=== PATIENT | female | born 1990 | race African-American/Black ===

== ENCOUNTER 2024-05-07 18:13 | Emergency (ER) | payer OTHER, SELFPAY ==
[2024-05-07 18:22] VITALS: BP 148/97; PULSE 98; RESP 17; TEMP 37.2; O2SAT 98; BMI 42.9
--- NOTE | 2024-05-07 18:51 | PC.NURSE ---
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 Pt landed on her left side and injured her left shoulder, elbow, hip and lower back. states that she is experiencing a 5/10 throbbing pain. Pt a&ox4.
--- NOTE | 2024-05-08 01:05 | ED_ITS ---
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 was assisting very tall very large patient who in her estimation is more than 300 lb and over 6 ft in height, who was leaning over seeing while she was behind him, he suddenly seemed to lose balance and fall backwards into her, she attempted to pushing forward toward the scene can support, however he was too heavy for her to support, and they both fell backwards, patient landing on top of her and she landing on her back. She did not believe that she hit her head. Has no posterior headache. Has no neck pain. Has left shoulder posterior discomfort. Has left lateral hip discomfort. Able to bear weight and ambulate. Related Data Allergies Allergy/AdvReac Type Severity Reaction Status Date / Time No Known Drug Allergies Allergy Verified 05/07/24 18:32 Patient History Social History Smoking Status: Never smoker Smoking Status: Never smoker Exam Narrative Exam Narrative: GENERAL: Well-developed patient, in mild distress. HEAD: Atraumatic. Normocephalic. EYES: Pupils equal round and reactive. Extraocular motions intact. No scleral icterus. No injection or drainage. ENT: Nose without bleeding, purulent drainage. Throat without erythema, tonsillar hypertrophy or exudate. Airway patent. NECK: Trachea midline. Non tender CARDIOVASCULAR: Regular rate and rhythm without murmurs, gallops, or rubs. RESPIRATORY: Clear to auscultation. Breath sounds equal bilaterally. No wheezes, rales, or rhonchi. GASTROINTESTINAL: Abdomen soft, non-tender, nondistended. EXTREMITIES: Left shoulder with no gross deformity, no tenderness or superior trapezius, upper rhomboid, nor along left clavicle, AC joint, anterior or latera l deltoid. Mild tenderness posterior shoulder without gross step-off. Normal range of motion. Mild tenderness left lateral hip, able to bear weight, can flex hip and move left heel toward buttock without difficulties. No limb length discrepancy. She was able to tolerate standing and ambulation without antalgic gait. BACK: Nontender without deformity or crepitance. No flank tenderness. NEURO: AOx3. Motor functions grossly nonfocal. SKIN: No rash or erythema of visible areas Initial Vital Signs Initial Vital Signs: Vital Signs Temperature 98.9 F 05/07/24 18:22 Pulse Rate 98 H 05/07/24 18:22 Respiratory Rate 17 05/07/24 18:22 Blood Pressure 148/97 H 05/07/24 18:22 Pulse Oximetry 98 05/07/24 18:22 Oxygen Delivery Method Room Air 05/07/24 18:22 Course Orders Ordered: Discontinued Medications Acetaminophen (Acetaminophen 325 Mg Tablet) 975 mg PO NOW ONE Stop: 05/08/24 01:01 Last Admin: 05/08/24 01:25 Dose: 975 mg Documented By: AB Vital Signs Vital signs: Vital Signs - 8 hr 05/07/24 18:22 Temperature 98.9 F Pulse Rate 98 H Respiratory Rate 17 Blood Pressure 148/97 H Pulse Oximetry 98 Oxygen Delivery Method Room Air Medical Decision Making MDM Narrative Medical decision making narrative: 33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 on 05/07/2024. She had not believe she hit her head. No neck pain. Mild posterior left shoulder tenderness without step-off, normal range of motion. Mild left lateral hip tenderness without bruising or significant decreased range of motion, able to bear weight and ambulate. Clinically suspect left shoulder strain, left hip contusion. No imaging indica chet for now. Patient happens to be off work for the next week or so. Advised not to lift or pole anything heavy with her left upper extremity for the next couple of days. Recheck with regular provider advised if she feels like she can not do her regular duties by next week scheduled next shift. [place] [employer] [id number]. Discharge Plan Departure Patient Disposition: Home Clinical Impression: Left shoulder strain, Contusion of left hip Activity Restrictions/Additional Instructions: Ms. 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 last night you were assisting a patient very tall very large, who fell backwards on top of view, both hit the ground, no loss of consciousness, no nausea or vomiting. You had pain to the left posterior shoulder and left hip. Nursing notes mentioned that you seemed to have ankle pain as well, and left elbow pain, but the time of my examination this not seem to be predominant area of discomfort, normal range of motion without tenderness in those areas. You did have mild tenderness posterior left shoulder, seemed muscular or soft tissue in nature. No x-rays indicated at left shoulder at this time. You had mild tenderness to the left lateral hip without gross deformity or skin changes or bruising, able to flex your hip. Able to bear weight and ambulate. No x-rays of the hip indicated at this time. Clinically suspect you may have left shoulder strain and left hip contusion by history and examination at this time. Consider use of Tylenol and or Motrin for pain control. You happen to be off work for the next week or so. Advised avoidance of lifting with left upper extremity for the next couple of days. Recheck with your regular provider advised in the next few days if you feel like you would not be able to complete your regular duties by next week when scheduled next. Return earlier to this/nearest emergency department for any change worsening symptoms or any concerns prior We follow your [employer] and [employer] [id number]. Thank you for letting our team evaluate you today. Stand Alone Forms: Patient Portal/API/Survey
[2024-05-08] MEDS: ACETAMINOPHEN 325 MG TABLET 975 MG PO (01:25)
== END 2024-05-08 01:37 | disposition home or self-care (01) ==
PROVIDERS: Emergency Provider Emergency Medicine
DX: S46.912A Strain of unspecified muscle, fascia and tendon at shoulder and upper arm level, left arm, initial encounter (principal); S70.02XA Contusion of left hip, initial encounter; W03.XXXA Other fall on same level due to collision with another person, initial encounter; Y93.F9 Activity, other caregiving; Y92.239 Unspecified place in hospital as the place of occurrence of the external cause; Y99.0 Civilian activity done for income or pay
CPT/HCPCS: 99283